=== PATIENT | male | born 1995 | race Caucasian/White ===

== ENCOUNTER 2016-07-20 00:43 | Emergency (ER) | payer OTHER ==
[~2016-07-20] VITALS: Ht 182.9 cm; Wt 77.3 kg
[~2016-07-20 00:43] MED LIST: AMOXICILLIN 50500 MG PO; NO HOME MEDICATIONS
[2016-07-20 00:46] VITALS: BP 120/62; TEMP 98.3
[2016-07-20 01:38] VITALS: PULSE 80
== END 2016-07-20 01:38 | disposition home or self-care (01) ==
LOC: COL.ER 00:43
DX: S05.02XA Injury of conjunctiva and corneal abrasion without foreign body, left eye, initial encounter (principal); X58.XXXA Exposure to other specified factors, initial encounter

== ENCOUNTER 2017-02-22 19:44 | Emergency (ER) | payer OTHER ==
[~2017-02-22] VITALS: Ht 182.9 cm; Wt 77.3 kg
[2017-02-22 19:47] VITALS: BP 128/74; TEMP 98.2
[2017-02-22 20:40] VITALS: PULSE 66
== END 2017-02-22 20:40 | disposition home or self-care (01) ==
LOC: COL.ER 19:44
DX: T18.0XXA Foreign body in mouth, initial encounter (principal); F12.10 Cannabis abuse, uncomplicated; Z87.891 Personal history of nicotine dependence; W45.8XXA Other foreign body or object entering through skin, initial encounter